=== PATIENT | male | born 1970 | race Caucasian/White ===

== ENCOUNTER → 2018-11-20 | Outpatient (CLI) | payer OTHER ==
[~2018-11-20] MED LIST: CYCL10 PO; HYDCHL25 PO; HYDR1TAB94 PO; IBUP600 PO; Norco 5-325 Ta1 EACH PO
[2018-11-20 17:56] LABS: BASOPHILS ABSOLUTE AUTO 0.03 K/mm3 (0.00-0.23); BASOPHILS PERCENT AUTO 0 % (0-2); EOSINOPHILS ABSOLUTE AUTO 0.16 K/mm3 (0.00-0.68); EOSINOPHILS PERCENT AUTO 1 % (0-6); Hematocrit 43.7 % (37.0-53.0); Hemoglobin 15.4 g/dL (13.5-17.5); IMMATURE GRAN ABSOLUTE AUTO 0.05 K/mm3 (0.00-0.10); IMMATURE GRAN PERCENT AUTO 0 % (0-1); LYMPHOCYTES ABSOLUTE AUTO 3.04 K/mm3 (0.84-5.20); LYMPHOCYTES PERCENT AUTO 26 % (21-46); MONOCYTES ABSOLUTE AUTO 0.96 K/mm3 (0.16-1.47); MONOCYTES PERCENT AUTO 8 % (4-13); Mean Corpuscular HGB Conc 35.2 g/dL (31.5-36.5); Mean Corpuscular Volume 85 fL (80-100); Mean Platelet Volume 10.5 fL (9.1-12.4); NEUTROPHILS PERCENT AUTO 65 % (41-73); Platelet Count 292 K/mm3 (150-400); RDW Coefficient Variation 12.4 % (11.7-14.2); RDW Standard Deviation 38.2 fL (35.1-46.3); Red Blood Cell Count 5.13 M/mm3 (4.30-5.90); White Blood Cell Count 11.94 K/mm3 (4.00-11.30)
== END ==
LOC: LAB EV 17:50 → LAB SHORT 17:50
PROVIDERS: Nurse Practitioner
DX: L03.113 Cellulitis of right upper limb (principal)
CPT/HCPCS: 85025; 85651

== ENCOUNTER 2024-11-16 06:12 | Day surgery (SDC) | payer OTHER ==
[2024-11-16] VITALS (13 sets, daily range): BP systolic 96–150; BP diastolic 70–98
[~2024-11-16] VITALS: Ht 182.9 cm; Wt 107.0 kg
[~2024-11-16 06:12] MED LIST changes: +AMLO10 PO; +BUPROPION XL150 M1 PO; +ESCITALOPRAM OX10 MG PO; +GABA300 PO; +HYDHCL25 PO
[2024-11-16] MEDS ORDERED: Acetaminophen 500 MG Tab PO SCH ×2 (06:20→16:00)
[2024-11-16] MEDS ORDERED: Lactated Ringer's 1,000 ML IV SCH ×2 (06:20→09:25)
[2024-11-16] MEDS ORDERED: OxyCODONE HCL 10 MG TABCR PO SCH (06:20)
[2024-11-16] MEDS ORDERED: Chlorhexidine Mouth Care 15 ML UDC MT SCH (06:20)
[2024-11-16] MEDS ORDERED: Ropivacaine 0.5% HCl/Pf 123.125 MG,EPINEPHrine HCL 0.25 MG,Ketorolac Tromethamine 15 MG... INFIL SCH (06:20)
[2024-11-16] MEDS ORDERED: Tranexamic Acid 100 ML IV SCH (06:20)
[2024-11-16] MEDS ORDERED: CeFAZolin Sodium 2,000 MG in NS 100 ML IV SCH ×2 (06:20→16:00)
--- NOTE | 2024-11-16 06:45 | NUR ---
AMBULATORY INTO [facility]. PT IS A&OX4-REPORTS 5/10 PAIN TO RIGHT KNEE WITH AMBULATION. HISTORY AND ALLERGIES REVIEWED. LUNGS CLEAR. NPO STATUS CONFIRMED. PT VALUABLES SENT WITH HIS SPOUSE LAUREEN.
[2024-11-16] MEDS ORDERED: CeFAZolin Sodium 2,000 MG VIAL ONE (07:02)
[2024-11-16] MEDS ORDERED: propofoL 100 ML IV ONE (07:17)
[2024-11-16] MEDS ORDERED: Bupivacaine 0.75%/Dext 8.25% 2 ML Amp IT ONE (07:18)
[2024-11-16] MEDS ORDERED: FentaNYL Citrate 50 MCG/ML 2 ML Injection ONE ×2 (07:20→07:51)
[2024-11-16] MEDS ORDERED: Dexamethasone Sod Phos 10 MG/ML 1ML VIAL ONE (07:21)
[2024-11-16] MEDS ORDERED: Midazolam HCl 1MG / ML 2ML Vial ONE (07:21)
[2024-11-16] MEDS ORDERED: Ondansetron HCl 2 MG / ML 2ML Vial ONE (07:21)
[2024-11-16] MEDS ORDERED: Lidocaine HCl 1% 5 ML SYR INJ ONE (08:00)
[2024-11-16] MEDS ORDERED: FentaNYL Citrate 50 MCG/ML 2 ML Injection IV PRN ×3 (08:00→08:10)
[2024-11-16] MEDS ORDERED: HYDROmorphone HCl/Pf 1MG SYR IV PRN ×2 (08:05→09:25)
[2024-11-16] MEDS ORDERED: Ketorolac Tromethamine 30mg Vial ONE (08:05)
[2024-11-16] MEDS ORDERED: Ondansetron HCl 2 MG / ML 2ML Vial IV PRN ×2 (08:05→09:35)
[2024-11-16] MEDS ORDERED: Lidocaine HCl 2% 20 ML MDV ONE (08:05)
[2024-11-16] MEDS ORDERED: Magnesium Hydroxide Conc 10 ML UDC PO PRN (09:25)
[2024-11-16] MEDS ORDERED: DiphenhydrAMINE HCL 25 MG Cap PO PRN (09:30)
[2024-11-16] MEDS ORDERED: Promethazine HCl 25 MG Tab PO PRN (09:30)
[2024-11-16] MEDS ORDERED: FLU VACC TS2024-25(6MOS UP)/PF 45 MCG/0.5 ML SYRINGE IM SCH (09:30)
[2024-11-16] MEDS ORDERED: OxyCODONE HCL 5 MG TAB PO PRN ×2 (09:30→09:35)
[2024-11-16] MEDS ORDERED: Metoclopramide HCl 5MG / ML 2ML Vial IV PRN (09:35)
--- NOTE | 2024-11-16 09:57 | NUR ---
POST OP ARRIVAL TO SURGICAL UNIT VIA HOSPITAL BED, ALERT, ORIENTED & PLEASANT. LUNGS CLEAR. HRR. PPP. R KNEE w/ GARCÍA WRAP & AQUACEL; NO DRNG NOTED. DENIES N/V; SNACKS & DRINKS GIVEN. C/O R KNEE PAIN, AFTER SNACKS EATEN WILL MEDICATE.
[2024-11-16] MEDS ORDERED: Bisacodyl 10 MG Supp PR PRN (10:15)
[2024-11-16] MEDS ORDERED: ASPI81CH PO (10:50)
[2024-11-16] MEDS ORDERED: Ketorolac Tromethamine 15mg Vial IV SCH (12:00)
--- NOTE | 2024-11-16 16:10 | NUR ---
DISCHARGE PT WORKED w/ THERAPY. PAIN WELL CONTROLLED. EATING, DRINKING, & VOIDED. [employer]RA [employer]AR [employer]ACK SENT w/ PT. ESCORTED OUT VIA W/C.
[2024-11-16] MEDS ORDERED: buPROPion HCL 150 MG TAB.SR.12H PO SCH (21:00)
[2024-11-16] MEDS ORDERED: Docusate Sodium 100 MG Cap PO SCH (21:00)
[2024-11-16] MEDS ORDERED: HyDROXyzine HCl 25 MG Tab PO SCH (21:00)
[2024-11-16] MEDS ORDERED: Gabapentin 300 MG Cap PO SCH (21:00)
[2024-11-17] MEDS ORDERED: Aspirin 81 MG Chew PO SCH (09:00)
[2024-11-17] MEDS ORDERED: Citalopram Hydrobromide 20 MG Tab PO SCH (09:00)
[2024-11-17] MEDS ORDERED: AmLODIPine Besylate 5 MG Tab PO SCH (09:00)
== END 2024-11-16 16:00 | disposition home or self-care (01) ==
LOC: ORSCMMR 06:12 → ORD 07:30 → ORSCMMR 07:30 → SURS 09:44 → ORD 11:00 → ORSCMMR 16:00
PROVIDERS: Orthopaedic Surgery
PROC: 0SRC0JA Replacement of Right Knee Joint with Synthetic Substitute, Uncemented, Open Approach (ICD-10-PCS; principal; 2024-11-16 07:30)
DX: M17.11 Unilateral primary osteoarthritis, right knee (principal); I10 Essential (primary) hypertension; E78.00 Pure hypercholesterolemia, unspecified; Z79.899 Other long term (current) drug therapy
CPT/HCPCS: 73560-RT; 97110; 97116; 97161; 97530; A9270; C1713; C1776; J0171; J0690; J0735; J1100; J1885; J2250; J2405; J2704; J2795; J3010; J7120

== ENCOUNTER 2025-01-24 06:36 | Day surgery (SDC) | payer OTHER ==
[~2025-01-24] VITALS: Ht 182.9 cm; Wt 106.5 kg
[~2025-01-24 06:36] MED LIST changes: +ASPI81CH PO
[2025-01-24] MEDS ORDERED: IRBE75 (07:00)
[2025-01-24] MEDS ORDERED: BUSP10 (07:00)
[2025-01-24] MEDS ORDERED: PERCOCET 10-321 EA10 (07:01)
[2025-01-24] MEDS ORDERED: propofoL 50 ML IV ONE (07:32)
[2025-01-24] MEDS ORDERED: Lactated Ringer's 1,000 ML IV ONE ×2 (07:32→07:44)
[2025-01-24 08:46] VITALS: BP 108/91
== END 2025-01-24 08:45 | disposition home or self-care (01) ==
LOC: ORSCSDS 06:36
PROVIDERS: Surgery
PROC: 0DBP8ZX Excision of Rectum, Via Natural or Artificial Opening Endoscopic, Diagnostic (ICD-10-PCS; principal; 2025-01-24 08:00)
DX: Z12.11 Encounter for screening for malignant neoplasm of colon (principal); K62.1 Rectal polyp; I10 Essential (primary) hypertension; F41.9 Anxiety disorder, unspecified; E78.5 Hyperlipidemia, unspecified; E78.1 Pure hyperglyceridemia; R56.9 Unspecified convulsions; Z87.820 Personal history of traumatic brain injury; Z79.899 Other long term (current) drug therapy
CPT/HCPCS: 88305; J2704; J7120

== ENCOUNTER 2025-04-29 06:48 | Day surgery (SDC) | payer OTHER ==
[2025-04-29] VITALS (10 sets, daily range): BP systolic 115–137; BP diastolic 61–89
[~2025-04-29] VITALS: Ht 175.3 cm; Wt 111.0 kg
[~2025-04-29 06:48] MED LIST changes: +BUSP5 PO; +CeFAZolin Sodium 2,000 MG in NS 100 ML IV SCH; +IRBE75; +MELATONIN5 M1 PO; +PERCOCET 10-321 EA10; +ROSUVASTATIN CA20 MG PO; +SILD50TA PO
[2025-04-29] MEDS ORDERED: IRBE150 PO (07:06)
--- NOTE | 2025-04-29 07:31 | NUR ---
Pre-Op teaching done. Pt verbalizes understanding. History, Chart, Medications and Allergies reviewed before start of procedure. Ambulatory in Day Surgery. Patient States Post-Procedure ride home has been arranged. Patient confirms NPO status and agrees with scheduled surgery.
--- NOTE | 2025-04-29 07:43 | NUR ---
PT HAS TONGUE PIERCING. UNABLE TO REMOVE IT. ANESTHESIA INFORMED, AND OK TO PROCEED. [facility] WAIVER SIGNED.
[2025-04-29] MEDS ORDERED: Bupivacaine 0.5% HCl 5 MG/ML 30MLVIAL ONE (07:44)
[2025-04-29] MEDS ORDERED: FentaNYL Citrate 50 MCG/ML 2 ML Injection ONE (07:47)
[2025-04-29] MEDS ORDERED: Dexamethasone Sod Phos 10 MG/ML 1ML VIAL ONE (08:07)
[2025-04-29] MEDS ORDERED: Rocuronium Bromide 10 MG/ML 5ML Injection IV ONE (08:07)
[2025-04-29] MEDS ORDERED: Ondansetron HCl 2 MG / ML 2ML Vial ONE (08:07)
[2025-04-29] MEDS ORDERED: Ketorolac Tromethamine 30mg Vial ONE (08:53)
[2025-04-29] MEDS ORDERED: Sugammadex Sodium 200 MG/2ML SDV (100 MG/ML) ONE (08:53)
[2025-04-29] MEDS ORDERED: HYDROmorphone HCl/Pf 1MG SYR IV PRN ×2 (09:15)
[2025-04-29] MEDS ORDERED: FentaNYL Citrate 50 MCG/ML 2 ML Injection IV PRN ×2 (09:15)
[2025-04-29] MEDS ORDERED: Ondansetron HCl 2 MG / ML 2ML Vial IV PRN (09:15)
[2025-04-29] MEDS ORDERED: Albuterol 2.5 MG/3 ML VIAL INH PRN (09:15)
[2025-04-29] MEDS ORDERED: HYDROcodone 5-APAP 325 TAB PO PRN (09:25)
--- NOTE | 2025-04-29 10:47 | NUR ---
Patient up to Ambulate independently. Gait steady. Discharge instructions reviewed with patient. Patient verbalizes understanding. Copy given to patient to take home, [facility]. Patient States Post-Procedure ride home has been arranged. Discharged via wheelchair to private car for ride home. PT TOLERATING PO. DRESSING C/D/I. ABD BINDER IN PLACE. PT REPORTS PAIN TOLERABLE, READY TO GO HOME.
== END 2025-04-29 10:47 | disposition home or self-care (01) ==
LOC: ORSCMMR 06:48 → ORD 08:00 → ORSCMMR 08:00
PROVIDERS: Surgery
PROC: 0WUF0JZ Supplement Abdominal Wall with Synthetic Substitute, Open Approach (ICD-10-PCS; principal; 2025-04-29 08:00)
DX: K42.0 Umbilical hernia with obstruction, without gangrene (principal); I10 Essential (primary) hypertension; E78.5 Hyperlipidemia, unspecified; F32.9 Major depressive disorder, single episode, unspecified; Z79.899 Other long term (current) drug therapy
CPT/HCPCS: A9270; C1781; J0690; J1100; J1885; J2405; J2704; J3010; J7120